=== PATIENT | female | born 1980 | race Caucasian/White ===

== ENCOUNTER 2016-07-29 04:35 | Inpatient (IN) | payer OTHER ==
[2016-07-29] MEDS ORDERED: OXYTOCIN 10000 MU/ML SOL IM PRN (04:43)
[2016-07-29] MEDS ORDERED: MEPIVACAINE HCL 1% MPF 30 ML SOL INFIL PRN (04:43)
[2016-07-29] MEDS ORDERED: METHYLERGONOVINE MALEATE 0.2 MG/ML SOL IM PRN (04:43)
[2016-07-29] MEDS ORDERED: LACTATED RINGERS 1,000 ML IV PRN (04:43)
[2016-07-29] MEDS ORDERED: SODIUM CHLORIDE 0.9% FLUSH 10 ML SOL IV PRN (04:43)
[2016-07-29] MEDS ORDERED: CARBOPROST 250 MCG/ML SOL IM PRN (04:43)
[2016-07-29] MEDS ORDERED: FENTANYL 100MCG/2ML SOL IV PRN (04:43)
[2016-07-29] MEDS ORDERED: BENZOCAINE/MENTHOL 1 SPR TOP PRN (05:29)
[2016-07-29] MEDS ORDERED: METHYLERGONOVINE MALEATE 0.2 MG TAB PO PRN (05:29)
[2016-07-29] MEDS ORDERED: BISACODYL 10 MG SUP PR PRN (05:29)
[2016-07-29] MEDS ORDERED: WITCH HAZEL 1 EA PAD TOP PRN (05:29)
[2016-07-29] MEDS ORDERED: TEMAZEPAM 15MG 15 MG CAP PO PRN (05:29)
[2016-07-29] MEDS ORDERED: FLEET ENEMA PR PRN (05:29)
[2016-07-29] MEDS: IBUPROFEN 600 MG TAB PO PRN ×3 (05:45→20:10)
[2016-07-29] MEDS: SODIUM CHLORIDE 0.9% FLUSH 10 ML SOL IV SCH ×3 (07:05→20:10)
[2016-07-29] MEDS: APAP/HYDROCODONE 325/5 TAB PO PRN ×4 (07:19→23:12)
[2016-07-29] MEDS: DOCUSATE SODIUM 100 MG SGL PO SCH ×2 (08:55→20:10)
[2016-07-29] MEDS: FOLIC ACID 1 MG TAB PO SCH (08:55)
[2016-07-29] MEDS: MULTIVITAMIN2 1 EA TAB PO SCH (08:55)
[2016-07-30] MEDS: APAP/HYDROCODONE 325/5 TAB PO PRN ×5 (04:16→21:44)
[2016-07-30] MEDS: IBUPROFEN 600 MG TAB PO PRN ×3 (04:16→20:17)
[2016-07-30] MEDS: SODIUM CHLORIDE 0.9% FLUSH 10 ML SOL IV SCH ×2 (04:16→12:06)
[2016-07-30] MEDS: FOLIC ACID 1 MG TAB PO SCH (09:40)
[2016-07-30] MEDS: MULTIVITAMIN2 1 EA TAB PO SCH (09:40)
[2016-07-30] MEDS: DOCUSATE SODIUM 100 MG SGL PO SCH ×2 (09:40→20:17)
[2016-07-30 12:05] LABS: ABO O
[2016-07-30 12:06] LABS: RH TYPE Negative
[2016-07-30 22:48] VITALS: O2SAT 97
[2016-07-31] MEDS: APAP/HYDROCODONE 325/5 TAB PO PRN ×2 (03:12→08:10)
[2016-07-31 03:46] VITALS: BP 107/69; PULSE 65; RESP 16; TEMP 97.3
[2016-07-31] MEDS: IBUPROFEN 600 MG TAB PO PRN (06:41)
[2016-07-31] MEDS: FOLIC ACID 1 MG TAB PO SCH (08:09)
[2016-07-31] MEDS: MULTIVITAMIN2 1 EA TAB PO SCH (08:09)
[2016-07-31] MEDS: DOCUSATE SODIUM 100 MG SGL PO SCH (08:10)
== END 2016-07-31 10:50 | disposition home or self-care (01) | DRG 560 ==
LOC: OB 04:35 → OBSVTOIN 04:35
PROVIDERS: ADMIT Family Medicine; ATTEND Family Medicine
PROC: 10907ZC Drainage of Amniotic Fluid, Therapeutic from Products of Conception, Via Natural or Artificial Opening (ICD-10-PCS; principal; 2016-07-29)
PROC: 10E0XZZ Delivery of Products of Conception, External Approach (ICD-10-PCS; 2016-07-29)
DX: O80 Encounter for full-term uncomplicated delivery (principal); G56.02 Carpal tunnel syndrome, left upper limb; Z37.0 Single live birth; Z3A.39 39 weeks gestation of pregnancy
CPT/HCPCS: 36415; 59025; 85018; 86900; 86901; J0670; J2590